=== PATIENT | male | born 2000 | race Two or more races ===

== ENCOUNTER 2024-06-11 19:41 | Emergency (ER) | payer MEDICAID, SELFPAY ==
[2024-06-11] VITALS (8 sets, daily range): BP systolic 113–132; BP diastolic 52–92; PULSE 70–148; RESP 15–24; TEMP 37.1–37.4; O2SAT 97–100; BMI 19.5
--- NOTE | 2024-06-11 20:03 | PC.NURSE ---
PT ATTEMPTED SUICIDE BY TAKING 30 PILLS OF OXYBUTYNIN 5MG TRYING TO KILL HIMELF. PT STATES HE IS HAVING ISSUES WITH HIS SONS MOM
--- NOTE | 2024-06-11 20:11 | EKG_ITS ---
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
[2024-06-11] MEDS: activated charcoaL 25 GM/120 ML TUBE 50 GM PO (20:17)
[2024-06-11 20:24] LABS: Collection Type, Urine Clean Catch
[2024-06-11 20:36] LABS: Bilirubin,Urine Negative (Negative); Blood,Urine Negative (Negative); Clarity,Urine Clear (Clear/Hazy); Color,Urine Colorless (Lt Yel-Yel); Glucose, Urine Negative (Negative); Ketones,Urine Negative (Negative); Leukocyte Esterase,Urine Negative (Negative); Nitrite,Urine Negative (Negative); PH,Urine 6.5 (5.0-7.0); Protein,Urine Negative (Neg - Trace); RBC,Urine 1 /hpf (0-3); Specific Gravity,Urine 1.006 (1.001-1.035); Squamous Epithelial Cell,Urine 1 /hpf (0-5); Urobilinogen,Urine Negative mg/dL (0.0-1.0); WBC,Urine 1 /hpf (0-5)
[2024-06-11 20:37] LABS: Basophils % (Auto) 0 % (0-2.5); Eosinophils % (Auto) 0 % (0-10); Hematocrit 42.6 % (41.0-53.0); Immature Granulocytes % (Auto) 0 % (0-0); Immature Granulocytes Auto 0.01 Thou/mm3 (0.00-0.00); Lymphocytes # (Auto) 1.4 Thou/mm3 (1.0-4.8); Lymphocytes % (Auto) 19 % (10-50); Mean Corpuscular HGB Conc 35.2 g/dl (31.0-37.0); Mean Corpuscular Hemoglobin 32.5 pg (25.0-35.0); Mean Corpuscular Volume 92 fL (80-100); Monocytes # (Auto) 0.5 Thou/mm3 (0.0-0.8); Monocytes % (Auto) 6 % (0-12); Neutrophils # (Auto) 5.4 Thou/mm3 (1.8-7.7); Neutrophils % (Auto) 74 % (37-80); Nucleated Red Blood Cell % 0 /100 WBC (0); Platelet Count 274 Thou/mm3 (140-440); RDW Standard Deviation 40.1 fL (35.1-43.9); Red Blood Count 4.62 Miln/mm3 (4.50-5.90); White Blood Count 7.3 Thou/mm3 (3.8-10.6)
--- NOTE | 2024-06-11 20:49 | EDNOTE_ITS ---
ED Psych RME/HPI General Chief Complaint: Suicidal Stated Complaint: OVERDOSE/SUICIDAL Time Seen by Provider: 06/11/24 19:44 Source: patient and EMS Arrival date/time: 06/11/24 19:41 Mode of arrival: EMS Limitations: no limitations RME / HPI RME / HPI Narrative: --- DR. GRIFFIN MAIN ED EVALUATION: 24-year-old male with no history of psychiatric disorder brought in by EMS coming in after intentional overdose with 30 tablets of Ditropan. The patient states he took the medications because he wanted to kill himself. He states on his girlfriend left with their 3-year-old and 1-year-old to be with somebody else. He has been depressed and the concept of her being with someone else is getting into his head. He reports feeling suicidal for the last 2 days. Patient states he lives with his mother. He smokes marijuana. He denies any alcohol use today. He denies any Tylenol or ASA use. No chest pain or shortness of breath. Related Data Previous Rx's ?Medication ?Instructions ?Recorded amoxicillin 875 mg-potassium 1 tab PO TID #21 tabs 04/30/23 clavulanate 125 mg tablet chlorhexidine gluconate 0.12 % 15 ml buccal BID #473 mL 04/30/23 mouthwash (Paroex Oral Rinse) ibuprofen 800 mg tablet 800 mg PO TID PRN pain #30 tabs 04/30/23 meclizine 12.5 mg tablet 12.5 mg PO TID PRN dizziness #14 03/21/24 tabs Allergies Allergy/AdvReac Type Severity Reaction Status Date / Time No Known Allergies Allergy Verified 03/21/24 13:07 Review of Systems Review of Systems Systems Reviewed: All systems reviewed, normal except as documented Narrative Review of Systems: Gen: No fever, no chills, no weight loss, EYES: No discharge, no visual changes, no pain HEENT: No ear pain, no congestion, no sore throat PULM: + shortness of breath, no cough, no congestion CV: No chest pain, no dyspnea on exertion, GI: No nausea, : No frequency, no urgency, no dysuria Musc/skel: No joint pain, no back pain Skin: No rash Psyc: No hallucinations, + depression, + anxiety, + suicidal ideation Past Medical History Past Medical History NEUROLOGIC: Positive Cerebrovascular Accident and Seizures CARDIAC: Negative Cardiac Disorders, Congestive Heart Failure or Edema RESPIRATORY: Negative Chronic Obstructive Pulmonary Disease (COPD) GENITOURINARY: Negative Renal Disease ENDOCRINE: Negative Diabetes Mellitus Type 1 or Diabetes Mellitus Type 2 Family History FAMILY HISTORY: Negative Family Cardiac Disorders Surgical History SURGICAL: Negative Cardiac Surgery, Endocrine Surgery or Ear Surgery Social History SMOKING STATUS: Never smoker ED Exam Narrative Physical exam: GEN. APPEARANCE: The patient is alert awake oriented X-3 HEENT: Normocephalic, atraumatic. Pupils are equal and reactive. Oral mucosa is moist. Patent Nares NECK: Supple, nontender, no thyromegaly, no meningismus, no JVD, no step offs CHEST: Symmetrical, atraumatic, and with equal expansion , CARDIOVASCULAR: Heart regular rhythm no murmur or gallop rub or extra beats. LUNGS: No laboring tachypnea or wheezing. No intercostal subcostal retraction. No rales and no rhonchi. ABDOMEN: Soft, flat, nontender to palpation, no guarding or rebound tenderness. Active and normal bowel sounds. EXTREMITIES: Nontender. No edema. No cyanosis. SKIN: Warm and dry, no jaundice or rashes noted. No pallor. NEURO: Patient is NASH x 4, Cranial nerves II through XII grossly intact. There is no focal neurologic deficits noted. GCS is 15, PNS and [employer] appear grossly intact. General Limitations: Present no limitations Psychiatric Psychiatric exam: Present depressed, anxious and flat affect; Absent agitated Course Course Course Narrative: 1999: EKG shows sinus tachycardia. Normal QTc and OK interval. Charcoal is given. Patient is awake and talking in full sentences at this time. Patient was placed in observation for treatment and monitoring of psychiatric symptoms at 1944. Symptoms consist of suicidal ideation and depression. Treatment plan includes psychiatric consult, reassessments, and possible placement into psychiatric facility. The patient had access and provided personal hygiene, shower, food, water, and daily medications. 2147: Per poison control, patient to be in observation for 8 hours. Hydrate. Repeat EKG q 4 hours. Goal is to normalize EKG, reduce tachycardia. Recommended Mag if QTc >500, Bicarb if QRS >120. 0159: Patient re-evaluated. Heart rate noted to be 48. Case d/w poison control who states bradycardia not related to anticoag presentation. Likely, patient is just sleeping, at baseline, resting heart rate. Will continue to observe. 0 540 1 repeat EKG 0541: hours right at 6:00 is medically I suppose Sinus bradycardia, heart rate 52. QRS 100. QTc 409. 0600: Medically cleared. [facility]. Past medical, surgical, social and family history reviewed. Vitals and home medications reviewed. Results and treatment plan discussed. They will assume the care of the patient at this time and will follow the patient, pending mental health evaluation and final disposition. Quality Measures none Orders Category Date Time Status EKG (ED ONLY) *Do not use* NOW Care 06/11/24 20:11 Completed EKG (ED ONLY) *Do not use* NOW Care 06/12/24 01:44 Completed EKG (ED ONLY) *Do not use* NOW Care 06/12/24 05:36 Completed EKG (ED Only) Stat Exams 06/11/24 20:11 Draft EKG (ED Only) Stat Exams 06/12/24 01:44 Draft EKG (ED Only) Stat Exams 06/12/24 05:36 Ordered Acetaminophen Stat Lab 06/11/24 20:22 Completed Alcohol, Blood Medical Stat Lab 06/11/24 20:22 Completed CBC Stat Lab 06/11/24 20:22 Completed Comprehensive Metabolic Panel Stat Lab 06/11/24 20:22 Completed Drug Screen,Urine Stat Lab 06/11/24 20:15 Completed Salicylate Stat Lab 06/11/24 20:22 Completed Urinalysis Stat Lab 06/11/24 20:15 Completed Sodium Chloride 0.9% 1000 ml [Ns] 1,000 ml Med 06/11/24 23:55 Discontinued IV 999 mls/hr activated charcoaL [Actidose-Aqua] Med 06/11/24 20:07 Discontinued 50 gm PO X1 ONE Vital Signs Vital signs: Vital Signs Temperature 99.3 F 06/11/24 19:54 Pulse Rate 70 06/11/24 19:54 Respiratory Rate 18 06/11/24 19:54 Blood Pressure 126/79 06/11/24 19:54 Pulse Oximetry (%) 99 06/11/24 19:54 Oxygen Delivery Method Room Air 06/11/24 19:54 Procedures -ED Procedure Comment EKG manual reading, 06/12/2024 0128 hours, my interpretation: sinus bradycardia, rate: 44 bpm, early repolarization, QTc 379, OK interval 162, heart rate from previous 125 bpm, improved tachycardia EKG Interpretation #1: Date of EK06/11/24 Time of EK:15 Rate: 125 Interpretation: Interpreted by me EKG Impression: Sinus tachycardia Additional EKG comment: Sinus tachycardia, no ST elevations or depressions. QTc is 410.. #140. Impression sinus tachycardia Psych MDM Narrative MDM Narrative:: ? Scribe Attestation: I, Abilio Eaton, am scribing for and in the presence of Dr. Resendiz. Provider Notation: Although this document has been carefully reviewed, there may still be some phonetic and other typographical errors. These errors are purely grammatical due to imperfections in the software program and should not be construed in any way to compromise the substance of the patient's medical care during this visit. Patient data External records reviewed:: [facility] previous records and EMS form Clinical information provided by:: patient and EMS Social determinants that could affect healthcare access:: none (marijuana use, alcohol use, mental health) Patient has the following chronic illnesses:: CVA, seizures How is presenting disease/condition affected by chronic disease/condition?: uneffected by Evaluation data The following diagnostics were reviewed and interpreted by me:: lab results and radiology exam(s) Lab and/or radiology exams considered but not ordered:: None Interpretation Summary: Normal WBC 7.3 UA negative Tox screen positive for marijuana Medications / Prescriptions Medications or Prescriptions considered but not ordered:: None Medication administrations:: Medication Administration History Discontinued Medications Charcoal (Activated Charcoal 25 Gm/120 Ml Tube) 50 gm PO X1 ONE Stop: 06/11/24 20:08 Last Admin: 06/11/24 20:17 Dose: 50 gm Documented By: ALEXANDRA Sodium Chloride (Ns) 1,000 mls @ 999 mls/hr IV .Q1H1M ONE Stop: 06/12/24 00:55 Last Infusion: 06/12/24 01:28 Dose: Infused Documented By: Admin: 06/12/24 00:04 Dose: 999 mls/hr Documented By: RICK As above Consultations Consultation(s) initiated? (list below): Yes Consultation #1 (Physician, Specialty, Details): Mental health evaluation Diagnosis Psych Differential Diagnosis: suicidal ideation and other (overdose, electrolyte abnormality) Most likely diagnosis given after review of the tests above:: See clinical impression below Admission Indicated Admission indicated?: not indicated Explain why admission is indicated or not indicated:: Pending mental health evaluation Admission Request Was there a request for admission?: No Disposition Plan Disposition Plan: other (specify) (sign-out pending mental health evaluation and final disposition) Discharge Plan Plan Disposition Comment: Stable at signout Prescriptions/Referrals Prescriptions/Med Rec: No Action amoxicillin-pot clavulanate 875-125 mg tablet 1 tab PO TID Qty: 21 0RF ibuprofen 800 mg tablet 800 mg PO TID PRN (Reason: pain) Qty: 30 0RF chlorhexidine gluconate [Paroex Oral Rinse] 0.12 % mouthwash 15 ml buccal BID Qty: 473 0RF meclizine 12.5 mg tablet 12.5 mg PO TID PRN (Reason: dizziness) Qty: 14 0RF Referrals: Nilay Meneses MD [Primary Care Provider] - In 1 week Problem List Clinical Impression: Intentional overdose Patient/Caregiver Discharge Instructions Print Language: Angolan
[2024-06-11 20:56] LABS: Acetaminophen < 2.0 mcg/mL (10.0-20.0); Alanine Aminotransferase 16 U/L (10-49); Albumin, Serum 4.8 gm/dL (3.5-5.0); Albumin/Globulin Ratio 1.8 (1.2-2.2); Alcohol, Blood Medical < 3.0 mg/dL (0-10.0); Alkaline Phosphatase 107 U/L (46-116); Anion Gap 9 (7-16); Aspartate Amino Transferase 15 U/L (0-34); BUN/Creatinine Ratio 10 Ratio (12-20); Bilirubin,Total 0.7 mg/dL (0.3-1.2); Blood Urea Nitrogen 10 mg/dL (9-23); Calcium 9.6 mg/dL (8.3-10.6); Calcium (Corrected) 9.6 mg/dL (8.5-10.1); Carbon Dioxide 22.8 mMol/L (20.0-31.0); Chloride 106 mMol/L (98-107); Estimated Creatinine Clearance 91.3 mL/min (>60); Globulin 2.7 gm/dL (2.3-3.5); Glucose 114 mg/dL (74-106); Osmolality,Calculated 275 (275-295); Potassium 3.5 mMol/L (3.4-5.1); Salicylate < 3.0 mg/dL; Sodium 138 mMol/L (136-145); Total Protein 7.5 gm/dL (5.7-8.2); eGFR > 60 See Note
--- NOTE | 2024-06-11 21:47 | PC.NURSE ---
Poison control contacted. spoke with Jenna.
[2024-06-11 22:16] LABS: Amphetamine/Methamp Scrn,U Negative (Negative); Barbiturate Screen,Urine Negative (Negative); Benzodiazepines Screen,Urine Negative (Negative); Benzoylecgonine Screen, Ur Negative (Negative); Fentanyl Screen,Urine Negative (Negative); Opiate Screen,Urine Negative (Negative); THC Screen,Urine Positive (Negative)
--- NOTE | 2024-06-11 23:58 | PC.NURSE ---
Pt cooperative and calm. sleeping , arouses easily
[2024-06-12] VITALS (16 sets, daily range): BP systolic 96–130; BP diastolic 56–79; PULSE 45–77; RESP 11–20; TEMP 36.6–37.4; O2SAT 97–100
[2024-06-12] MEDS: SODIUM CHLORIDE 0.9% 1000 ML 1,000 ML 999 ML IV (00:04)
--- NOTE | 2024-06-12 01:44 | EKG_ITS ---
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
--- NOTE | 2024-06-12 01:47 | PC.NURSE ---
Pts HR in the 40s. EKG ordered. aware.
--- NOTE | 2024-06-12 01:53 | PC.NURSE ---
calling poison control now
--- NOTE | 2024-06-12 06:37 | EDNOTE_ITS ---
Emergency Room Addendum <Mary Conner - Last Filed: 06/12/24 17:43> Addendum Narrative: 0600: Care assumed from Dr. Cerna, the previous shift emergency physician. Past medical, surgical, social and family history reviewed. Vitals and home medications reviewed. I will assume the care of the patient at this time, pending mental health evaluation and final disposition. The patient was placed in ED observation care at 06/12/2024 at 0600 hours. The patient was placed in ED observation care behavioral health evaluation. The patients past medical history, social history, and family history were reviewed. The plan of care will include serial examinations. Please refer to the emergency department record for history and examination.? While in ED observation the patient will have access to water, food, and personal hygiene. If the patient takes home medication(s), they will be continued in ED observation. Physical exam by me shows patient under no acute distress at this time. 0800: Mental health placed the patient on a 5150 psychiatric hold, pending placement. 1800: Patient was signed out to Dr. Turner. Past medical, surgical, social and family history reviewed. Vitals and home medications reviewed. Results and chintan tment plan discussed. They will assume the care of the patient at this time and will follow the patient, pending psychiatric placement. <Everett Cat MD - Last Filed: 06/12/24 17:48> Addendum Narrative: 0600: Care assumed from Dr. Cerna, the previous shift emergency physician. Past medical, surgical, social and family history reviewed. Vitals and home medications reviewed. I will assume the care of the patient at this time, pending mental health evaluation and final disposition. Dr. Cabezas told me that the patient has been medically clear by her and patient is waiting for mental health The patient was placed in ED observation care at 06/12/2024 at 0600 hours. The patient was placed in ED observation care behavioral health evaluation. The patients past medical history, social history, and family history were reviewed. The plan of care will include serial examinations. Please refer to the emergency department record for history and examination.? While in ED observation the patient will have access to water, food, and personal hygiene. If the patient takes home medication(s), they will be continued in ED observation. Physical exam by me shows patient under no acute distress at this time. 0800: [facility] placed the patient on a 5150 psychiatric hold, pending placement. 1800: Patient was signed out to Dr. Turner. Past medical, surgical, social and family history reviewed. Vitals and home medications reviewed. Results and treatment plan discussed. They will assume the care of the patient at this time and will follow the patient, pending psychiatric placement. At this time, the patient is alert awake oriented x 4 GCS of 15. Heart rate of 70 normal sinus rhythm on the monitor. Blood pressure is 130/70. O2 saturation of 100% on room air. Alert awake oriented and smiling. He is eating well. He is urinating well. Diagnosis: 5150 Medication overdose Condition: Patient is stable at signout
--- NOTE | 2024-06-12 12:14 | PC.CC ---
Pt Darren Martel, is a 24-year-old male brought in to ED by [facility] on a 5150 DTS hold. Companion Caregiver met with pt to complete psychological assessment. Pt presents disheveled and emotional as evidence of eye becoming watery. Pt was easily engaged and able to sit up on gurney and make direct eye contact as encounter progressed. Pt is noted to be alert and oriented to person, current place and year. Pt reports hx of mental health but has never been diagnosed or received MH treatment. Pt denies previous 5150 holds. Pt placed in ED 17. Pt reports living with Mother Robina Sánchez phone number [phone], address [address] [place] [address]. ED Accident Investigator spoke with Pt mother and she reported client has been emotionally distraught due to life partner leaving Pt. Mother reports she fears for her sons life and is not able to participate in safety planning due to mother working every day and unable to provide consistent supervision for client. Mother reports client had a previous overdose attempt and undiagnosed depressive disorder. ED Accident Investigator encountered Pt for mental health evaluation. ED Accident Investigator used the following interventions: empathy, unconditional positive regard, Socratic dialogue including clarifying and probing questions. Pt was receptive and was able to disclosed he has had a lot of recent changes in his life, life partner mother of his children has recently moved on and is now in a new relationship. Pt reports he has MS but only symptoms are occasional numbness of hands and vision become blurry. Pt reports he is independent with all ADLs and no DME. ED Accident Investigator used C-SSRS to support process and assessed for SI/HI, self-harming behaviors, method, access to lethal means, plan/intent. Pt was responsive to mental health evaluation but became very emotinal through evaluation and expressed feelings of hopelessness. Pt denied hx of non-suicidal self-injury. Pt states he has been feeling depressed and hopeless and will like to receive MH support. ED Accident Investigator consulted with sales service supervisor Erendira Horan and it was agreed to keep client on hold due to client not able to safety plan and expressing feelings of hopelessness.
--- NOTE | 2024-06-12 12:28 | PC.CC ---
ED Chemical Tester send out psych packet to all accepting adult facilities via XM Fax and paper fax.
--- NOTE | 2024-06-12 19:52 | PD.EDSUICD ---
ED Psych RME/HPI General Chief Complaint: Suicidal Stated Complaint: OVERDOSE/SUICIDAL Time Seen by Provider: 06/11/24 19:44 Source: patient and EMS Arrival date/time: 06/11/24 19:41 Mode of arrival: EMS Limitations: no limitations RME / HPI RME / HPI Narrative: --- DR. GRIFFIN MAIN ED EVALUATION: 24-year-old male with no history of psychiatric disorder brought in by EMS coming in after intentional overdose with 30 tablets of Ditropan. The patient states he took the medications because he wanted to kill himself. He states on his girlfriend left with their 3-year-old and 1-year-old to be with somebody else. He has been depressed and the concept of her being with someone else is getting into his head. He reports feeling suicidal for the last 2 days. Patient states he lives with his mother. He smokes marijuana. He denies any alcohol use today. He denies any Tylenol or ASA use. No chest pain or shortness of breath. Related Data Home Medications ?Medication ?Instructions ?Recorded ?Confirmed oxybutynin chloride 5 mg tablet 5 mg PO DAILY 06/12/24 06/12/24 prednisone 50 mg tablet 1,250 mg PO DAILY 06/12/24 06/12/24 Allergies Allergy/AdvReac Type Severity Reaction Status Date / Time No Known Allergies Allergy Verified 06/12/24 07:59 Review of Systems Review of Systems Systems Reviewed: All systems reviewed, normal except as documented ED Exam Narrative Physical exam: GENERAL APPEARANCE: alert and oriented x 4, well-developed, well-nourished, no acute distress VITALS: All vitals were reviewed and the pulse ox is 98% on room air, which is normal according to my interpretation. HEENT: normocephalic, atraumatic NECK: supple LUNGS: no respiratory distress, normal effort HEART: good peripheral perfusion ABDOMEN: non distended EXTREMITIES: atraumatic NEUROLOGIC: awake; alert and oriented x4; cranial nerves II-XII grossly intact PSYCHIATRIC: appropriate mood and affect SKIN: warm, dry, normal color; no rashes General Limitations: Present no limitations Course Course Course Narrative: Patient was placed in observation for treatment and monitoring of psychiatric symptoms at 1944. Symptoms consist of suicidal ideation and depression. Treatment plan includes psychiatric consult, reassessments, and possible placement into psychiatric facility. Quality Measures none Orders Category Date Time Status Bedside COVID-19 Antigen Test NOW Care 06/12/24 20:41 Completed EKG (ED ONLY) *Do not use* NOW Care 06/11/24 20:11 Completed EKG (ED ONLY) *Do not use* NOW Care 06/12/24 01:44 Completed EKG (ED ONLY) *Do not use* NOW Care 06/12/24 05:36 Completed EKG (ED Only) Stat Exams 06/11/24 20:11 Draft EKG (ED Only) Stat Exams 06/12/24 01:44 Draft EKG (ED Only) Stat Exams 06/12/24 05:36 Ordered Acetaminophen Stat Lab 06/11/24 20:22 Completed Alcohol, Blood Medical Stat Lab 06/11/24 20:22 Completed CBC Stat Lab 06/11/24 20:22 Completed Comprehensive Metabolic Panel Stat Lab 06/11/24 20:22 Completed Drug Screen,Urine Stat Lab 06/11/24 20:15 Completed Salicylate Stat Lab 06/11/24 20:22 Completed Urinalysis Stat Lab 06/11/24 20:15 Completed Sodium Chloride 0.9% 1000 ml [Ns] 1,000 ml Med 06/11/24 23:55 Discontinued IV 999 mls/hr activated charcoaL [Actidose-Aqua] Med 06/11/24 20:07 Discontinued 50 gm PO X1 ONE Vital Signs Vital signs: Vital Signs Temperature 99.3 F 06/11/24 19:54 Pulse Rate 70 06/11/24 19:54 Respiratory Rate 18 06/11/24 19:54 Blood Pressure 126/79 06/11/24 19:54 Pulse Oximetry (%) 99 06/11/24 19:54 Oxygen Delivery Method Room Air 06/11/24 19:54 Psych MDM Narrative MDM Narrative:: Took over care of the patient at [address] Cat. Patient is a 24-year-old male who is suicidal secondary to problems with his girlfriend. Patient is medically cleared and awaiting crisis placement 22:24 patient is excepted at [facility] by Dr. Simpson. Scribe Attestation: I, Abilio Eaton, am scribing for and in the presence of Dr. Turner. Provider Notation: Although this document has been carefully reviewed, there may still be some phonetic and other typographical errors. These errors are purely grammatical due to imperfections in the software program and should not be construed in any way to compromise the substance of the patient's medical care during this visit. Patient data External records reviewed:: [facility] previous records and EMS form Clinical information provided by:: patient and EMS Social determinants that could affect healthcare access:: mental health Patient has the following chronic illnesses:: CVA, seizures How is presenting disease/condition affected by chronic disease/condition?: uneffected by Evaluation data The following diagnostics were reviewed and interpreted by me:: other (specify) (labs ordered by previous provider reviewed) Lab and/or radiology exams considered but not ordered:: None Interpretation Summary: Medically cleared Medications / Prescriptions Medications or Prescriptions considered but not ordered:: None Medication administrations:: Medication Administration History Discontinued Medications Charcoal (Activated Charcoal 25 Gm/120 Ml Tube) 50 gm PO X1 ONE Stop: 06/11/24 20:08 Last Admin: 06/11/24 20:17 Dose: 50 gm Documented By: ALEXANDRA Sodium Chloride (Ns) 1,000 mls @ 999 mls/hr IV .Q1H1M ONE Stop: 06/12/24 00:55 Last Infusion: 06/12/24 01:28 Dose: Infused Documented By: Admin: 06/12/24 00:04 Dose: 999 mls/hr Documented By: RICK As above Consultations Consultation(s) initiated? (list below): Yes Consultation #1 (Physician, Specialty, Details): See MDM Diagnosis Psych Differential Diagnosis: suicidal ideation, depression and acute anxiety Most likely diagnosis given after review of the tests above:: Intentional overdose Admission Indicated Admission indicated?: not indicated Explain why admission is indicated or not indicated:: Transfer Admission Request Was there a request for admission?: No Disposition Plan Disposition Plan: Transfer Discharge Plan Plan Patient Disposition: [facility] Disposition Comment: Stable at signout Prescriptions/Referrals Prescriptions/Med Rec: No Action prednisone 50 mg tablet 1,250 mg PO DAILY Patient Comments: TAKE 25 TABLETS (1,250 MG TOTAL) BY MOUTH DAILY FOR 3 DAYS. oxybutynin chloride 5 mg tablet 5 mg PO DAILY Patient Comments: TAKE 1 TABLET (5 MG TOTAL) BY MOUTH DAILY FOR 90 DOSES. Referrals: Gideon,Nilay Y, MD [Primary Care Provider] - In 1 week Problem List Clinical Impression: Intentional overdose Patient/Caregiver Discharge Instructions Print Language: Kazakh Stand Alone Forms: [employer] Award Info., Patient Portal Info Letter
--- NOTE | 2024-06-12 20:42 | PC.NURSE ---
ACCEPTED [facility], [address] [place] [id number] [address], SPOKE WITH DIANNE
--- NOTE | 2024-06-12 21:07 | PC.NURSE ---
RECEIVED CONFIRMATION FROM MARIA DOLORES AT [facility] THAT ALL INFORMATION HAS BEEN RECEIVED AND WE ARE GOOD TO SET UP TRANSPORTATION
--- NOTE | 2024-06-12 22:17 | PC.NURSE ---
Pt resting quietly at this time. Pt is calm and cooperative.
--- NOTE | 2024-06-12 23:00 | PC.NURSE ---
Attempted to call report. No answer. Left message. as directed.
--- NOTE | 2024-06-13 19:29 | PC.CC ---
Pts chart accessed to update crisis log and stats.
== END 2024-06-12 23:10 ==
PROVIDERS: Emergency Medicine; Emergency Provider Emergency Medicine; PCP Family Medicine
DX: T44.3X2A Poisoning by other parasympatholytics [anticholinergics and antimuscarinics] and spasmolytics, intentional self-harm, initial encounter (principal); R45.851 Suicidal ideations; F32.A Depression, unspecified
CPT/HCPCS: 36415; 80053; 80307; 80320; 80329; 81001; 85025; 87811; 93005; 96127; 99285; J7030; A9270; G0480

== ENCOUNTER 2025-03-06 01:51 | Emergency (ER) | payer MEDICAID, SELFPAY ==
[2025-03-06 01:51] VITALS: BMI 26.6
[2025-03-06 02:05] VITALS: BP 130/80; PULSE 80; RESP 17; TEMP 37.3; O2SAT 96
--- NOTE | 2025-03-06 02:07 | PD.EDSKIN ---
ED Skin Abcess FB-RME/HPI General Chief complaint: Skin/Abscess/Foreign Body Stated complaint: SWELLING TO LEFT SIDE FACE Time Seen by Provider: 03/06/25 01:57 Arrival date/time: 03/06/25 01:51 This is a case of 35-year-old male with no medical history came into the emergency room due to swelling on the left side of the face and left upper lip for 2 days history of present illness started when the patient have infected pimple on the nasal area and started to have pain swelling and redness on the left side of the face patient tetanus shot is up to date Limitations: no limitations Related Data Home Medications ?Medication ?Instructions ?Recorded ?Confirmed oxybutynin chloride 5 mg tablet 5 mg PO DAILY 06/12/24 06/12/24 prednisone 50 mg tablet 1,250 mg PO DAILY 06/12/24 06/12/24 Previous Rx's ?Medication ?Instructions ?Recorded clindamycin HCl 300 mg capsule 300 mg PO Q6H 10 days #40 caps 03/06/25 mupirocin 2 % topical ointment 1 applic topical TID #22 grams 03/06/25 sulfamethoxazole 800 1 tab PO Q12H 10 days #20 tabs 03/06/25 mg-trimethoprim 160 mg tablet (Bactrim DS) Allergies Allergy/AdvReac Type Severity Reaction Status Date / Time No Known Allergies Allergy Verified 06/12/24 07:59 Review of Systems Review of Systems Systems Reviewed: All systems reviewed, normal except as documented Constitutional Constitutional: Reports system reviewed and no additional complaints, except as documented and Reports as per HPI Cardiovascular Cardiovascular: Reports system reviewed and no additional complaints, except as documented and Reports as per HPI Respiratory Respiratory: Reports system reviewed and no additional complaints, except as documented and Reports as per HPI Gastrointestinal Gastrointestinal: Reports system reviewed and no additional complaints, except as documented and Reports as per HPI Genitourinary Genitourinary: Reports system reviewed and no additional complaints, except as documented and Reports as per HPI Musculoskeletal Musculoskeletal: Reports system reviewed and no additional complaints, except as documented and Reports as per HPI Neurologic Neurologic: Reports system reviewed and no additional complaints, except as documented and Reports as per HPI Past Medical History Past Medical History NEUROLOGIC: Positive Cerebrovascular Accident and Seizures CARDIAC: Negative Cardiac Disorders, Congestive Heart Failure or Edema RESPIRATORY: Negative Chronic Obstructive Pulmonary Disease (COPD) GENITOURINARY: Negative Renal Disease ENDOCRINE: Negative Diabetes Mellitus Type 1 or Diabetes Mellitus Type 2 Family History FAMILY HISTORY: Negative Family Cardiac Disorders Surgical History SURGICAL: Negative Cardiac Surgery, Endocrine Surgery or Ear Surgery Social History SMOKING STATUS: Current every day smoker ED Exam General Limitations: Present no limitations General appearance: Present alert, in no apparent distress and other (Patient is awake alert oriented not in distress nontoxic looking well-hydrated well-nourished) Head Head exam: Present atraumatic, normocephalic and normal inspection Eye Eye exam: Present normal appearance, PERRL and EOMI ENT ENT exam: Present normal exam, normal oropharynx, mucous membranes moist and other (Noted ear and throat were normal noted a small pustular wound on the left nostril swelling redness turbinate is normal no discharge no frontal or maxillary sinus tenderness no nasal deviation) Expanded ENT Exam External ear exam: Present other (Noted left face and left upper lip swelling with redness suggestive of cellulitis not abscess) Neck Neck exam: Present normal inspection, full ROM and trachea midline; Absent tenderness, meningismus, lymphadenopathy or thyromegaly Chest Chest inspection: Present normal inspection and symmetric chest wall rise; Absent tenderness, rash or abscess Respiratory Respiratory exam: Present normal lung sounds bilaterally; Absent respiratory distress, wheezes, stridor, accessory muscle use or prolonged expiratory phase Cardiovascular Cardiovascular exam: Present regular rate, normal rhythm and normal heart sounds; Absent bradycardia, tachycardia, irregular rhythm, systolic murmur or diastolic murmur Abdominal Exam Abdominal exam: Present soft and normal bowel sounds Extremities Exam Extremities exam: Present normal inspection and full ROM Back Exam Back exam: Present normal inspection and full ROM Neurological Exam Neurological exam: Present alert, oriented X3, CN II-XII intact, normal gait and reflexes normal; Absent motor sensory deficit Psychiatric Psychiatric exam: Present normal affect and normal mood Skin Skin exam: Present warm, dry, intact, normal color and other (Cellulitis left face) Course Quality Measures none Orders Category Date Time Status Clindamycin Vial [Cleocin vial] Med 03/06/25 02:03 Discontinued 600 mg IM X1 ONE Dexamethasone Inj [Decadron Inj] Med 03/06/25 02:03 Discontinued 10 mg IM X1 ONE Vital Signs Vital signs: Vital Signs Temperature 99.1 F 03/06/25 02:05 Pulse Rate 80 03/06/25 02:05 Respiratory Rate 17 03/06/25 02:05 Blood Pressure 130/80 03/06/25 02:05 Pulse Oximetry (%) 96 03/06/25 02:05 Oxygen Delivery Method Room Air 03/06/25 02:05 Oxygen saturation is 96% in room air normal Skin / Abscess / Foreign Body MDM Narrative MDM Narrative:: This is a case of 35-year-old male with no medical history came into the emergency room due to swelling on the left side of the face and left upper lip for 2 days history of present illness started when the patient have infected pimple on the nasal area and started to have pain swelling and redness on the left side of the face patient tetanus shot is up to date physical examination patient is awake alert oriented not in distress nontoxic looking well-hydrated well-nourished noted a mild to moderate tenderness on the left side of the face and left upper lip no abscess no fluctuance not indurated with some redness suggestive of cellulitis patient noted to have infected pimple on the nasal area no nasal polyp no septal deviation patient was given clindamycin here in the emergency room for cellulitis of the left face and was prescribed with clindamycin and Bactrim and mupirocin ointment patient will follow-up in 2 days for reevaluation of facial cellulitis follow-up with PCP in 2 days for reevaluation worsening symptoms return precaution the ER was advised Patient was discharged with comfortable condition walking with stable gait. Patient verbalized no further complains explained diagnosis and answered patient question. Patient is comfortable with the proposed management plan including the need to follow up with his/her primary care physician and any specialist if applicable Discussed patient for any urgent condition or worsening sx, He/She needed to go to emergency room immediately or call 911. Patient acknowledge the responsibility to follow up as instructed and to monitor her/his symptoms. For any persistence of the symptoms for more than 3-5 days return precaution advised. Discussed the result of the test and was given printed discharge instruction Patient data External records reviewed:: [facility] previous records Clinical information provided by:: patient Social determinants that could affect healthcare access:: none Patient has the following chronic illnesses:: None How is presenting disease/condition affected by chronic disease/condition?: no chronic disease Evaluation data The following diagnostics were reviewed and interpreted by me:: other (specify) (None) Lab and/or radiology exams considered but not ordered:: None Interpretation Summary: None Medications / Prescriptions Medications or Prescriptions considered but not ordered:: Given Medication administrations:: Medication Administration History Discontinued Medications Clindamycin Phosphate (Clindamycin Phos Inj 150 Mg/Ml Vial 6 Ml) 600 mg IM X1 ONE Stop: 03/06/25 02:04 Dexamethasone Sodium Phosphate (Dexamethasone Sod Phos Inj 10 Mg/Ml Vial) 10 mg IM X1 ONE Stop: 03/06/25 02:04 Given Consultations Consultation(s) initiated? (list below): No Diagnosis Skin/Abscess Differential Diagnosis: abscess of skin or subcutaneous tissue and cellulitis Most likely diagnosis given after review of the tests above:: Facial cellulitis secondary to infected wound nasal area Admission Indicated Admission indicated?: not indicated Explain why admission is indicated or not indicated:: Not indicated Admission Request Was there a request for admission?: No Admission Attestation Admission request attestation: Not indicated Disposition Plan Disposition Plan: Discharge Discharge Attestation Discharge Attestation: The patient and all family members were given an opportunity to ask questions and understood the discharge instructions. Discharge instructions specifically effects, indications for sooner follow up or return to the emergency department, and the expected course of current diagnosis. Patient condition: Stable Discharge Plan Plan Patient Disposition: HOME (Self Care) Patient condition on transfer: Stable Prescriptions/Referrals Prescriptions/Med Rec: New clindamycin HCl 300 mg capsule 300 mg PO Q6H 10 Days Qty: 40 0RF sulfamethoxazole-trimethoprim [Bactrim DS] 800-160 mg tablet 1 tab PO Q12H 10 Days Qty: 20 0RF mupirocin 2 % ointment 1 applic topical TID Qty: 22 0RF No Action prednisone 50 mg tablet 1,250 mg PO DAILY Patient Comments: TAKE 25 TABLETS (1,250 MG TOTAL) BY MOUTH DAILY FOR 3 DAYS. oxybutynin chloride 5 mg tablet 5 mg PO DAILY Patient Comments: TAKE 1 TABLET (5 MG TOTAL) BY MOUTH DAILY FOR 90 DOSES. Problem List Clinical Impression: Cellulitis of face, Infected open wound Patient/Caregiver Discharge Instructions Education Materials: ED Cellulitis, ED Cellulitis, Facial, ED Wound Check (Infection) Additional Instructions: Follow-up with your primary care physician in 2 days for reevaluation return to the emergency room in 2 days for evaluation of the facial cellulitis worsening symptoms or any emergent concern call 911 or go to the nearest emergency room take your medication as directed finish the course of antibiotic keep the area clean and dry Print Language: Yakut Stand Alone Forms: [employer] Award Info., Patient Portal Info Letter PA/DIRECTOR TELEHEALTH Supervising Physician PA/DIRECTOR TELEHEALTH Supervising Physician: Dr. Trent Cross
[2025-03-06] MEDS: DEXAMETHASONE SOD PHOS INJ 10 MG/ML VIAL PO (02:47)
[2025-03-06] MEDS: CLINDAMYCIN PHOS INJ 150 MG/ML VIAL 6 ML 600 MG IM (02:48)
== END 2025-03-06 03:18 | disposition home or self-care (01) ==
PROVIDERS: Emergency Provider Emergency Medicine; PCP Family Medicine
DX: L03.211 Cellulitis of face (principal)
CPT/HCPCS: 96372; 99282; J0736; J1100